=== PATIENT | female | born 1955 | race Caucasian/White ===

== ENCOUNTER 2023-01-17 08:16 | Outpatient (CLI) | payer MEDICARE, OTHER, SELFPAY | END 2023-01-17 08:17 | disposition home or self-care (01) | LOC: NFLDREF 01-18 15:25 | PROVIDERS: PCP Family Medicine; Referring Provider Family Medicine; Visit Provider Family Medicine | DX: K13.79 Other lesions of oral mucosa (principal) | CPT/HCPCS: 85651 ==

== ENCOUNTER 2023-10-16 08:25 | Day surgery (SDC) | payer MEDICARE, OTHER, SELFPAY ==
[2023-10-16 08:49] VITALS: BMI 25.6
[2023-10-16] MEDS: LACTATED RINGERS 1000 ML 1,000 ML 100 ML IV (09:10)
[2023-10-16] MEDS: SODIUM CHLORIDE 0.9 % (FLUSH) 10 ML SYRINGE IVF (09:15)
[2023-10-16 09:17] VITALS: BP 156/85; PULSE 56; RESP 16; TEMP 36.8; O2SAT 98
--- NOTE | 2023-10-16 09:41 | W.PM.H&PU ---
History & Physical Update History & Physical Update H&P Reviewed and patient assessed: No changes noted
--- NOTE | 2023-10-16 10:01 | W.ANESCHARGE ---
Anesthesia Charges Start Date/Time Anesthesia Start Date: 10/16/23 Anesthesia Start Time: 11:51 Stop Date/Time Anesthesia Stop Date: 10/16/23 Anesthesia Stop Time: 13:14
--- NOTE | 2023-10-16 10:44 | XR_ITS ---
Patient: JAYLEN FRENCH Facility:?[facility] Patient ID:?[id number] Site Patient ID:?[id number]. Site :?[id number] Study:?XRay-Extremity Right 2V 3RD FINGER-10/16/2023 12:56:20 PM Ordering Physician:?DR. SCHILLING Final Report: Indication: RIGHT 3RD FINGER FUSION DIP Technique: Two fluoroscopic images of the right ring finger. Fluoroscopic time 24.5 seconds. IMPRESSION: Fluoroscopic guidance for fusion across the DIP joint. Dictated by Niles Bhat MD @ 10/17/2023 8:56:53 AM Signed by:?Niles Bhat MD @10/17/2023 8:56:53 AM (Electronic Signature)
[2023-10-16] MEDS: lidocaine HCL 2 % MULTIDOSE 20 ML VIAL INJECTION (11:04)
[2023-10-16] MEDS: BUPIVACAINE 0.5% 30 ML INJECTION (11:04)
--- NOTE | 2023-10-16 11:07 | SUR.PREOP ---
SAME DAY SURGERY LOCAL INJECTION SITE VERIFICATION WAS PERFORMED BY SURGEON/PA AND PATIENT PRIOR TO LOCAL ANESTHETIC BEING INJECTED TO OPERATIVE SITE.
--- NOTE | 2023-10-16 11:30 | SUR.OPER ---
PATIENT QUESTIONS ANSWERED SATISFACTORILY PREOPERATIVELY. PATIENT BROUGHT TO OR #3 PER CART. Patient positioned supine on OR #3 bed. The perioperative team supported right arm bilaterally on arm boards. Final approval of positioning by surgeon.
[2023-10-16] MEDS: NEOMYCIN/BACITRACIN/POLYMYXIN B 1 APPLIC TOPICAL (12:55)
--- NOTE | 2023-10-16 12:57 | P.ORPRC_ITS ---
Procedure Note Date of procedure: 10/16/23 Procedure: PREOPERATIVE DIAGNOSIS: 1. 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 Right long finger dorsal ulnar mass adjacent to the DIP joint PROCEDURE: 1. Right long finger DIP joint arthrodesis 2. Right long finger dorsal ulnar mass open excision adjacent to DIP joint 3. 11445 - Intraoperative fluoroscopy use and interpretation. SURGEON: Bradley Chen MD. BODY SANDER: Refugio GRULLON - Of note, an project construction assistant manager was critical for this case to aid in patient positioning, tissue retraction, limb manipulation/positioning, finger manipulation/control, protection of critical structures, closure, and splinting. ANESTHESIA: Digital block for anesthetic plus MAC IMPLANTS: Synthes headless compression screw (2.0 mm) TOURNIQUET: 25 minutes of digital tourni-cot with excellent capillary refill upon removal. COMPLICATIONS: None evident INDICATIONS: The patient is a pleasant 68-year-old female who has experienced right long finger deformity and mass/cyst development along with angulation and subluxation of the DIP joint, pain, and dysfunction. Additionally, nonoperative management of been tried and failed. Thus surgery was indicated. DESCRIPTION OF PROCEDURE: Following a thorough discussion of risks, benefits, and alternatives consent was obtained and the operative digit(s) was marked. The patient was brought to the operating room and placed supine on the operating table after preoperative digital block was administered in preop holding. 1 g IV Ancef was administered within 1 hour incision preoperatively. Proper time- out was performed identifying proper patient, site, and procedure. The operative extremity/digit was prepped and draped in the appropriate sterile fashion using ChloraPrep. The digit was exsanguinated and the tourniquet utilized on base of the digit. A squared off 'u' incision was made on the dorsal aspect of the operative finger DIP joint. Sharp incision down through the skin & subcutaneous tissue allowed identification of the extensor tendon. This was divided transversely. We elevated the flaps proximally and distally being cautious particularly distally with the germinal matrix. The joint was entered, and effusion evacuated. Of note, on the ulnar side of the joint there was a soft tissue mass that was encountered. Initially, this is thought to be fluid superficially, but it did seem to have some tissue component. It was dark brown in color and mildly friable but did have some consistency that was able to withstand rongeur ring. We mobilized it from the subcutaneous tissue and the deep layers and openly excise this tissue and sent it for permanent pathology. Thereafter, the collateral ligaments were released with a 15 blade on both sides, and the volar condyles of the middle phalanx were rongeured off. Large dorsal osteophyte were also rongeured off. The calcified cartilage layer was excised with rongeur and high-speed bur creating a cup and cone formation to the middle phalanx and distal phalanx, respectively. This had excellent approximation then of the bony surfaces. Small drill holes were created within the distal phalanx base for bleeding purposes. A 0.8mm guide pin was passed in a antegrade fashion into the distal phalanx and confirmed on C-arm fluoroscopic imaging to be center center position within the phalanx. The pin was then reversed and passed retrograde into the middle phalanx. Again C-arm confirmed the pin to be within the center center position in the middle phalanx. Alignment of the finger was aimed for straight on the PA perspective and slight flexion on the lateral perspective. The screw was measured, and selected. The 1.6 mm drill bit was passed retrograde through the distal phalanx and into the middle phalanx towards the base. The screw was then selected and passed smoothly. It achieved excellent compression holding the arthrodesis site stable. At this stage, a thorough irrigation normal saline was performed. Tourniquet was released. Hemostasis achieved. Closure of the skin flaps performed with 4- 0 nylon in interrupted fashion. Dressings were applied and a tube gauze bulky dressing was applied. PLAN: 1. Encourage elevation of the operative extremity. 2. Icing of the fingers and hand/wrist as tolerated/needed 3. Acetaminophen and/or oxycodone as needed for pain control. 4. Follow up with nursing/PA visit in 2 days for wound check/dressing removal and Stax splint application, which should be worn virtually all the time. May be removed cautiously during showering and then reapplied after drying. Then follow-up at the 2 week guru postop PA visit for suture removal. Then at the 6 week guru with myself with two view x-rays of the right long finger.
[2023-10-16 13:06] VITALS: BP 125/73; PULSE 55; RESP 16; O2SAT 98
[2023-10-16 13:15] VITALS: BP 133/75; PULSE 51; RESP 16; O2SAT 99
--- NOTE | 2023-10-16 13:17 | W.ANESCHARGE ---
Anesthesia Charges Start Date/Time Anesthesia Start Date: 10/16/23 Anesthesia Start Time: 11:51 Stop Date/Time Anesthesia Stop Date: 10/16/23 Anesthesia Stop Time: 13:14
[2023-10-16 13:30] VITALS: BP 152/83; PULSE 57; RESP 16; O2SAT 99
[2023-10-16 13:45] VITALS: BP 159/79; PULSE 53; RESP 16; O2SAT 98
[2023-10-16 14:00] VITALS: BP 149/73; PULSE 63; RESP 16; O2SAT 97
== END 2023-10-16 14:35 | disposition home or self-care (01) ==
PROVIDERS: PCP Family Medicine; Visit Provider Orthopaedic Surgery Sports Medicine
PROC: (CPT 26860; principal; 2023-10-16 10:30)
DX: M19.041 Primary osteoarthritis, right hand (principal); M25.741 Osteophyte, right hand
CPT/HCPCS: 26860; 26210; 01830; 73140; 76000; 88307; C1713; J0665; J1100; J2405; J2704; J7120

== ENCOUNTER 2025-05-04 09:37 | Outpatient (CLI) | payer MEDICARE, OTHER, SELFPAY ==
--- NOTE | 2025-05-04 10:15 | MR_ITS ---
EXAM: MRI of the RIGHT FOOT, without & with contrast CLINICAL INFORMATION: Female, 69 years old, with right foot pain and mass. INDICATION: Evaluate soft tissue mass. PRIOR SURGERY: None reported. PLAIN FILMS: Radiographs dated 04/21/2025. COMPARISONS: No prior MRIs available. TECHNICAL INFORMATION: Using a 1.5T MR scanner and a localizing surface coil: sagittals: PD, T2, T1FS post-gadolinium axials (long-axis): PD, STIR, T1FS post-gadolinium coronals (short-axis): T1, T2, STIR, T1FS post-gadolinium SEDATION: None CONTRAST: 12 mL of gadoterate meglumine was administered intravenously. FINDINGS: Osseous structures: Forefoot: Mild edema-like signal is present within the tibial sesamoid bone. The osseous structures of the forefoot are otherwise unremarkable. Midfoot: Prominent subcortical cystic change is present in the 2nd & 3rd metatarsal bases (axial STIR series 8 images 9 & 12). No stress/occult fracture. Joints: IP: No arthropathy or pathologic effusion. MTP: Moderate chondral thinning, osteophytosis, and mild reactive edema of the 1st MTP joint with a small cyst versus erosion of the dorsal/medial aspect of the 1st metatarsal head/neck (axial STIR series 8 images 11-15 and coronal T1FS series 9 images 19-24). Mild hallux valgus with overlying soft tissue thickening/bunion. TMT: Moderate chondral thinning, osteophytosis, irregularity, and cystic change surrounding the 2nd & 3rd metatarsal bases with mild degenerative change of the 4th TMT joint. The 1st & 5th TMT joints are unremarkable. Tarsal: Mild chondral thinning, reactive edema, and minimal osteophytosis of the medial naviculocuneiform joint. Lisfranc joint ligamentous complex: Lisfranc ligament complex: Dorsal, interosseous and plantar ligaments are intact, without sprain or disruption. TMT/intermetatarsal ligaments: Intact without sprain/disruption. Myotendinous structures: Flexor tendons: Marked tendinopathy and high-grade tearing of the plantar segment of peroneus longus over a length of approximately 2.5 cm (coronal STIR series 5 images 36-44 and sagittal PD series 3 images 12-19). The remainder of the flexor tendons are unremarkable. Extensor tendons: Intact, without tendinopathy, tear, or tenosynovitis. Plantar aponeurosis: Normal, without ongoing fasciopathy, tear or mass, although its proximal aspect at calcaneus is not included. Intrinsic musculature: Mild-moderate atrophy and edema throughout the intrinsic foot musculature. Soft tissues: Marked generalized soft tissue swelling throughout the right foot, was pronounced throughout the dorsum of the forefoot, but without a discrete soft tissue cyst or mass lesion. No evidence of a neuroma or intermetatarsal bursitis. IMPRESSION: 1. Marked tendinopathy and high-grade tearing of the distal, plantar segment of peroneus longus over a length of 2.5 cm leading up to its insertion. 2. Moderate osteoarthritis of the 1st MTP joint, with focal erosion of the dorsal/medial aspect of the 1st metatarsal head/neck, which could reflect superimposed gout arthropathy. 3. Moderate osteoarthritis of the 2nd & 3rd TMT joints with prominent subchondral cystic change in the 2nd & 3rd metatarsal bases. 4. Mild osteoarthritis of the 4th TMT and medial naviculocuneiform joints. 5. Marked generalized soft tissue swelling throughout the right foot, most pronounced throughout the dorsum of the forefoot. There is no discrete soft tissue or osseous mass lesion adjacent to the skin marker placed by the patient. 6. Nonspecific mild-moderate atrophy and edema throughout the intrinsic foot musculature. 7. No fracture or osseous stress reaction. BC Electronically signed on 05/04/2025 12:40:00 PM by Denis Velasquez M.D.
== END 2025-05-04 09:38 | disposition home or self-care (01) ==
LOC: MRI 09:40
PROVIDERS: PCP Family Medicine; Visit Provider Physician Assistant
DX: M79.671 Pain in right foot (principal); S96.811A Strain of other specified muscles and tendons at ankle and foot level, right foot, initial encounter; M19.071 Primary osteoarthritis, right ankle and foot; R22.41 Localized swelling, mass and lump, right lower limb
CPT/HCPCS: 73720; A9575